=== PATIENT | male | born 1985 ===

== ENCOUNTER 2024-02-02 13:59 | Emergency (ER) | payer OTHER ==
[~2024-02-02] VITALS: Ht 170.2 cm; Wt 113.4 kg
[~2024-02-02 13:59] MED LIST: ALBU8HFA2 INH; ALBU90OI INH; AMOX-CLAV 875-1 EAC5 PO; Acetaminophen325 M1 PO; CETI5 PO; IBUP600 PO; METPRE4DP PO; TRAM50 PO; Zithromax250 MG PO
[2024-02-02 14:03] VITALS: BP 182/132
[2024-02-02] MEDS ORDERED: Robaxin750 MG PO (15:13)
== END 2024-02-02 15:24 | disposition home or self-care (01) ==
LOC: ER 13:59
DX: R07.2 Precordial pain (principal); J45.909 Unspecified asthma, uncomplicated; Z79.899 Other long term (current) drug therapy; V89.2XXA Person injured in unspecified motor-vehicle accident, traffic, initial encounter
CPT/HCPCS: 71046; 99283-25